=== PATIENT | female | born 1960 | race Caucasian/White ===

== ENCOUNTER 2017-12-27 09:38 | Emergency (ER) | payer MEDICAID ==
[~2017-12-27] VITALS: Ht 167.6 cm; Wt 89.4 kg
[2017-12-27] MEDS ORDERED: LORazepam 0.5 MG TAB PO ONE (10:15)
[2017-12-27] MEDS ORDERED: ASPirin 81 mg TAB PO ONE (10:15)
[2017-12-27 11:02] LABS: Basophils # (auto) 0 uL; Basophils % (auto) 0.8 % (0.0-2.0); Eosinophils # (auto) 0 uL; Eosinophils % (auto) 0.5 % (0.0-7.0); Hematocrit 42.6 % (36.0-46.0); Lymphocytes # (auto) 1.6 uL; Lymphocytes % (auto) 36.6 % (10.0-50.0); Mean Corpuscular Hemoglobin 30.3 pg (28.0-32.0); Mean Corpuscular Hgb Conc. 32.9 g/dL (32.0-36.0); Mean Corpuscular Volume 92.1 fL (80.0-100.0); Monocytes # (auto) 0.3 uL; Monocytes % (auto) 7.9 % (0.0-12.0); Neutrophils # (auto) 2.3 uL; Neutrophils % (auto) 54.2 % (37.0-80.0); Nucleated Red Blood Cells % 0.1 %; Platelet Count (auto) 187 10^3/uL (140-450); Red Blood Cells 4.63 10^6/uL (4.0-5.20); Red Cell Distribution Width 14.8 % (11.8-14.3); White Blood Cell 4.3 10^3/uL (4.4-10.8)
[2017-12-27 11:28] LABS: Alanine Aminotransferase 47 U/L (13-56); Albumin 3.5 g/dL (3.4-5.0); Alkaline Phosphatase 135 U/L (45-117); Anion Gap 9 (5-15); Aspartate Aminotransferase 62 U/L (15-37); BUN/Creatinine Ratio 16.7; Bilirubin, Total 0.8 mg/dL (0.2-1.0); Blood Urea Nitrogen 11 mg/dL (7-18); Calcium 8.6 mg/dL (8.5-10.1); Carbon Dioxide 25 mmol/L (21-32); Chloride 107 mmol/L (98-107); GFR African American 118 mL/min; GFR Non-African American 98 mL/min; Glucose 88 mg/dL (74-106); Potassium 4.1 mmol/L (3.5-5.1); Sodium 141 mmol/L (136-145); Total Protein 7.7 g/dL (6.4-8.2)
[2017-12-27 13:16] VITALS: BP 130/80
== END 2017-12-27 13:18 | disposition home or self-care (01) ==
LOC: ER 09:38
DX: R07.89 Other chest pain (principal); F41.9 Anxiety disorder, unspecified; Z90.49 Acquired absence of other specified parts of digestive tract; Z88.0 Allergy status to penicillin
CPT/HCPCS: 36415; 80053; 84484; 85025; 93005

== ENCOUNTER 2025-06-26 13:56 | Emergency (ER) | payer MEDICAID ==
[~2025-06-26] VITALS: Ht 167.6 cm; Wt 104.0 kg
--- NOTE | 2025-06-26 14:15 | ECG ---
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
--- NOTE | 2025-06-26 14:28 | ED.PDOC ---
History of Present Illness HPI Comments 64-year-old female presents to the ER with prior medical history of liver cirrhosis, hepatitis-C, DVT: Surgical history of cholecystectomy, hernia removal, six C-sections, bowel obstruction surgery, IVC filter and then chief complaint of chest pain. Patient reports on taking her dog on a walk when she tripped forward with her left hand extended trying to break the fall but when landing the patient injured her chest with her hand. Patient states on having had left-sided chest pain associated with shortness a breath and nausea and vomiting since the incident on Wednesday of 06/22/2025. Denies any other symptoms at this time. Denies chills, fever, /D. No other associated symptoms, amaya fiers, recent injuries or sick contacts present at this time. Chief Complaint: Fall Injury Time Seen by MD: 14:20 Primary Care Provider: UNKNOWN Reviewed Notes: Nurses Notes, Medications, Allergies Allergies: Coded Allergies: Penicillins (Verified Allergy, Unknown, 12/27/17) Home Meds Active Scripts Tramadol HCl (Tramadol HCl) 50 Mg Tab, 50 MG PO Q12HP PRN for 5 Days, #10 TAB Prov:MIKE BEAL MD 06/26/25 Information Source: Patient Mode of Arrival: Ambulatory Severity: Moderate Timing: Days Duration: Since onset, Days Prehospital treatment: None Past Medical History PAST MEDICAL HISTORY: Anxiety Past Medical History (Other): liver cirrhosis, hepatitis-C, DVT Surgical History: Appendectomy, Cholecystectomy, (Six), Hernia Repair Surgical History (Other): bowel obstruction surgery, IVC filter ASSESSMENT COORDINATOR History: Denies all ASSESSMENT COORDINATOR Hx Family History Family History: Reviewed,noncontributory to illness, Unknown Social History Smoker: Non-Smoker Alcohol: Denies ETOH Use Drugs: Denies Drug Use Lives In: Home Constitutional: denies: chills, diaphoresis, fatigue, fever, malaise, sweats, weakness, others EENTM: denies: blurred vision, double vision, ear bleeding, ear discharge, ear drainage, ear pain, ear ringing, eye pain, eye redness, hearing loss, mouth pain, mouth swelling, nasal discharge, nose bleeding, nose congestion, nose pain, photophobia, tearing, throat pain, throat swelling, voice changes, others Respiratory: reports: shortness of breath; denies: cough, hemoptysis, orthopnea, SOB at rest, SOB with excertion, stridor, wheezing, others Cardiovascular: reports: chest pain; denies: dizzy spells, diaphoresis, Dyspnea on exertion, edema, irregular heart beat, left arm pain, lightheadedness, palpitations, PND, syncope, others Gastrointestinal: reports: nausea, vomiting; denies: abdomen distended, abdominal pain, blood streaked bowels, constipated, diarrhea, dysphagia, difficulty swallowing, hematemesis, melena, poor appetite, poor fluid intake, rectal bleeding, rectal pain, others Genitourinary: denies: abnormal vagina bleeding, burning, dyspareunia, dysuria, flank pain, frequency, hematuria, incontinence, pain, , vagina discharge, urgency, others Neurological: denies: dizziness, fainting, headache, left sided numbness, left sided weakness, numbness, paresthesia, pre-existing deficit, right sided numbness, right sided weakness, seizure, speech problems, tingling, tremors, weakness, others Musculoskeletal: denies: back pain, gout, joint pain, joint swelling, muscle pain, muscle stiffness, neck pain, others Integumetry: denies: bruises, change in color, change in hair/nails, dryness, laceration, lesions, lumps, rash, wounds, others Allergic/Immunocompromised: denies: Difficulty Healing, Frequent Infections, Hives, Itching, others Hematologic/Lymphatic: denies: anemia, blood clots, easy bleeding, easy bruising, swollen glands, others Endocrine: denies: excessive hunger, excessive sweating, excessive thirst, excessive urination, flushing, intolerance to cold, intolerance to heat, unexplained weight gain, unexplained weight loss, others Psychiatric: denies: anxiety, bipolar disorder, depression, hopeless, panic disorder, schizophrenia, sleepless, suicidal, others All Other Systems: Reviewed and Negative Physical Exam General Appearance: No Apparent Distress, Normal HEENT: Normal ENT Inspection, Pharynx Normal, TMs Normal Neck: Full Range of Motion, Non-Tender, Normal, Normal Inspection Respiratory: Chest Non-Tender, Lungs Clear, No Accessory Muscle Use, No Respiratory Distress, Normal Breath Sounds Cardiovascular: No Edema, No JVD, No Murmur, No Gallop, Normal Peripheral Pulses, Regular Rate/Rhythm Breast Exam: Deferred Gastrointestinal: No Organomegaly, Non Tender, No Pulsatile Mass, Normal Bowel Sounds, Soft Genitalia: Deferred Pelvic: Deferred Rectal: Deferred Extremities: No calf tenderness, Normal capillary refill, Normal inspection, Normal range of motion, Non-tender, No pedal edema Musculoskeletal : Apperance: Normal 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 Was a procedure done?: No EKG EKG : Pulse Rate (adult): 69 [place]: Normal Cardiac Rhythm: NSR Block: None ST: Nonsp Differential Dx Considerations may include: Chest contusion, ACS, DC, pneumothorax X-Ray, Labs, Meds, VS Vital Signs Date Time Temp Pulse Resp B/P (MAP) Pulse Ox O2 Delivery O2 Flow Rate FiO2 06/26/25 16:11 69 06/26/25 14:10 69 06/26/25 13:58 98.0 69 16 168/97 95 98.0 Lab Test 06/26/25 15:24 06/26/25 14:26 Range/Units Troponin I High Sensitivity 3 L 3 L </=34 ng/L White Blood Count 2.9 L 4.4-10.8 10^3/uL Red Blood Count 4.46 4.0-5.20 10^6/uL Hemoglobin 10.8 L 12.2-16.2 g/dL Hematocrit 33.8 L 36.0-46.0 % Mean Corpuscular Volume 75.8 L 80.0-100.0 fL Mean Corpuscular Hemoglobin 24.3 L 28.0-32.0 pg Mean Corpuscular Hemoglobin Concent 32.0 32.0-36.0 g/dL Red Cell Distribution Width 19.9 H 11.8-14.3 % Platelet Count 149 140-450 10^3/uL Mean Platelet Volume 8.0 6.9-10.8 fL Neutrophils (%) (Auto) 46.0 37.0-80.0 % Lymphocytes (%) (Auto) 41.1 10.0-50.0 % Monocytes (%) (Auto) 9.3 0.0-12.0 % Eosinophils (%) (Auto) 2.6 0.0-7.0 % Basophils (%) (Auto) 1.0 0.0-2.0 % Neutrophils # (Auto) 1.3 L 1.6-8.6 10 ^3/uL Lymphocytes # (Auto) 1.2 0.4-5.4 10 ^3/uL Monocytes # (Auto) 0.3 0-1.3 10 ^3/uL Eosinophils # (Auto) 0.1 0-0.8 10 ^3/uL Basophils # (Auto) 0 0-0.2 10 ^3/uL Nucleated Red Blood Cells 0.1 % Sodium Level 143 136-145 mmol/L Potassium Level 3.9 3.5-5.1 mmol/L Chloride Level 107 98-107 mmol/L Carbon Dioxide Level 27 20-31 mmol/L Anion Gap 9 5-15 Blood Urea Nitrogen 15 9-23 mg/dL Creatinine 0.86 0.550-1.02 mg/dL Glomerular Filtration Rate Calc 75 >90 mL/min BUN/Creatinine Ratio 17.4 10.0-20.0 Serum Glucose 84 74-106 mg/dL Calcium Level 8.8 8.7-10.4 mg/dL The CBC shows mild anemia with a hemoglobin of 10.8 and hematocrit 33.8 The chemistry panel is within normal limits. The troponin level x2 is negative The chest x-ray shows: No sign of any abnormalities The patient is discharged at this time The patient will follow up with the primary care doctor The patient will return to the emergency department's condition worsens Images Reviewed?: Images reviewed and evaluated by me Time of 1ST Reevaluation: 14:50 Reevaluation 1ST: Unchanged Time of 2ND Reevaluation: 16:09 Reevaluation 2ND: Improved Patient Education/Counseling: Diagnosis, Treatment, Prognosis, Need For Follow Up Family Education/Counseling: No Family Present SEPSIS Sepsis Screen Date sepsis recognized/suspect: Jun 26, 2025 Time Sepsis recognized/suspect: 1401 Recent Procedure: No On Antibiotic Therapy: No Respiratory Rate >20: No Heart Rate >90: No Temp<36 C (96.8 F) or >38.3 C: No SBP <90 or MAP <65 mmHG: No New Acute Mental Status Change: No Is the patient on CPAP, BIPAP,: No Physician Orders Chest Two Views Routine (06/26/25 14:19) Troponin-I Hs (06/26/25 17:19) Vital Signs Date Time Temp Pulse Resp B/P (MAP) Pulse Ox O2 Delivery O2 Flow Rate FiO2 06/26/25 16:11 69 06/26/25 14:10 69 06/26/25 13:58 98.0 69 16 168/97 95 98.0 Laboratory Tests Test 06/26/25 14:26 White Blood Count 2.9 10^3/uL (4.4-10.8) L Departure 1 Departure Time of Disposition: 16:09 Impression: Primary Impression: Contusion of rib on left side Qualified Codes: S29.8XXA - Other specified injuries of thorax, initial encounter Disposition: HOME / SELF CARE / HOMELESS Condition: Fair e-Prescriptions Tramadol HCl (Tramadol HCl) 50 Mg Tab 50 MG PO Q12HP PRN for 5 Days, #10 TAB Prov: MIKE BEAL MD 06/26/25 Discharged With: Self Critical Care Note Critical Care Time?: No Stability Stability form required: No Heart Score Heart Score: Heart Score Response (Comments) Value History N/A 0 EKG N/A 0 Age N/A 0 Risk Factors N/A 0 Troponin N/A 0 Total 0 I personally scribed for MIKE BEAL MD ([email or web address]) on 06/26/25 at 14:28. El ectronically submitted by Robbie Bojorquez ([email or web address]). MIKE BEAL MD Jun 26, 2025 14:28
[2025-06-26 14:41] LABS: Potassium 3.9 mmol/L (3.5-5.1); Sodium 143 mmol/L (136-145)
[2025-06-26 14:42] LABS: Anion Gap 9 (5-15); Calcium 8.8 mg/dL (8.7-10.4); Carbon Dioxide 27 mmol/L (20-31)
[2025-06-26 14:46] LABS: Chloride 107 mmol/L (98-107)
[2025-06-26 14:47] LABS: BUN/Creatinine Ratio 17.4 (10.0-20.0); Blood Urea Nitrogen 15 mg/dL (9-23); Glucose 84 mg/dL (74-106)
[2025-06-26 14:51] LABS: Hematocrit 33.8 % (36.0-46.0); Hemoglobin 10.8 g/dL (12.2-16.2); Mean Corpuscular Hemoglobin 24.3 pg (28.0-32.0); Mean Corpuscular Volume 75.8 fL (80.0-100.0); Nucleated Red Blood Cells % 0.1 %
--- NOTE | 2025-06-26 15:04 | DVH ---
CLINICAL HISTORY: Rib injury. TECHNIQUE: Frontal and lateral views of the chest were obtained. COMPARISON: None available. FINDINGS: DEVICES/LINES/TUBES: None. LUNGS: Clear. PLEURA: No pneumothorax or pleural effusion. MEDIASTINUM/OTHER: Normal heart size and mediastinal contours. Aortic atherosclerosis. Trachea is midline. BONES: No acute osseous abnormality. Mild degenerative changes of the thoracic spine. Osseous structures are demineralized. UPPER ABDOMEN: Unremarkable. IMPRESSION: No acute cardiopulmonary process.
[2025-06-26] MEDS ORDERED: TRAM-626 PO (16:14)
[2025-06-26 16:16] VITALS: BP 123/69; PULSE 65; RESP 16; TEMP 98.1; O2SAT 98
== END 2025-06-26 16:40 | disposition home or self-care (01) ==
LOC: ER 13:56
DX: S20.212A Contusion of left front wall of thorax, initial encounter (principal); Z88.0 Allergy status to penicillin; Z98.890 Other specified postprocedural states; Z90.49 Acquired absence of other specified parts of digestive tract; W01.0XXA Fall on same level from slipping, tripping and stumbling without subsequent striking against object, initial encounter; Y93.89 Activity, other specified; Y92.89 Other specified places as the place of occurrence of the external cause; Y99.8 Other external cause status
CPT/HCPCS: 36415; 71046; 80048; 84484; 85025; 93005